=== PATIENT | male | born 1985 | race Caucasian/White ===

== ENCOUNTER 2016-09-20 09:52 | Emergency (ER) | payer OTHER ==
[2016-09-20 09:54] VITALS: BP 136/86; PULSE 71; TEMP 98.3; BMI 25.0
[2016-09-20] MEDS ORDERED: IBUPROFEN 600 MG TABLET (FP) PO ONE ×2 (10:17→10:22)
--- NOTE | 2016-09-20 10:23 | PDOC ---
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 Patient states pain is worsened with lifting arm sideways and backwards. Patient denies being is injury to the affected area and denies sensory changes distal of the injury. Timing/Duration: 1-3 hours Severity: mild Associated Symptoms: reports: denies symptoms Past History - Past Medical History Allergies/Adverse Reactions: Allergies Allergy/AdvReac Type Severity Reaction Status Date / Time No Known Allergies Allergy Verified 09/20/16 09:57 Home Medications: Ambulatory Orders Cyclobenzaprine HCl [Flexeril -] 10 mg PO TID #21 tablet 10/24/14 Naproxen [Naprosyn -] 500 mg PO BID #20 tablet 10/24/14 Other medical history: NONE - Psycho/Social/Smoking Cessation Hx Anxiety: No Suicidal Ideation: No Smoking History: Never smoked Hx Alcohol Use: No Drug/Substance Use Hx: No Substance Use Type: None Patient Lives Alone: Yes Lives with/in: lives alone Review of Systems - Review of Systems Able to Perform ROS?: Yes Constitutional: No: Symptoms Reported HEENTM: No: Symptoms Reported Respiratory: No: Symptoms reported Cardiac (ROS): No: Symptoms Reported ABD/GI: No: Symptoms Reported Musculoskeletal: Yes: Joint Pain (left shoulder), Muscle Pain (left shoulder) Integumentary: No: Symptoms Reported Neurological: No: Numbness, Tingling, Weakness *Physical Exam - Vital Signs Last Vital Signs Temp Pulse Resp BP Pulse Ox 98.3 F 71 20 136/86 100 09/20/16 09:52 09/20/16 09:52 09/20/16 09:52 09/20/16 09:52 09/20/16 09:52 - Physical Exam General Appearance: Yes: Nourished, Appropriately Dressed. No: Apparent Distress HEENT: positive: EOMI Neck: positive: Supple. negative: Decreased range of motion Respiratory/Chest: positive: Lungs Clear, Normal Breath Sounds. negative: Respiratory Distress, Accessory Muscle Use Cardiovascular: positive: Regular Rhythm, Regular Rate. negative: Murmur Extremity: positive: Normal Capillary Refill, Normal Inspection, Tender (over the lateral aspect of AC joint and over the anterior aspect of rotator cuff tendon ) Integumentary: positive: Normal Color, Warm, Moist. negative: Swelling, Ecchymosis Neurologic: positive: Motor Strength 5/5 (left shoulder shrug and hand grasp) Medical Decision Making - Medical Decision Making 09/20/16 10:26 Injury to left shoulder with likely rotator cuff strain versus tear. Patient ordered for Motrin here and will be given recommendations to rest for 48 hours, contact orthopedist and [facility]. Patient also recommended to take Motrin every 8 hours and avoid movements that triggered discomfort *DC/Admit/Observation/Transfer Diagnosis at time of Disposition: Rotator cuff (capsule) sprain Qualifiers: Encounter type: initial encounter Laterality: left Qualified Code(s): S43.422A - Sprain of left rotator cuff capsule, initial encounter Rotator cuff injury Qualifiers: Encounter type: initial encounter Laterality: left Qualified Code(s): S46.002A - Unspecified injury of muscle(s) and tendon(s) of the rotator cuff of left shoulder, initial encounter - Discharge Dispostion Disposition: HOME Condition at time of disposition: Good - Referrals Referrals: Ilya Rodriguez MD [Staff Physician] - - Patient Instructions Printed Discharge Instructions: DI for Rotator Cuff Injury Additional Instructions: I recommend taking 600 mg of Motrin every 8 hours. Please apply ice to the area as much as you can tolerate over the next 72 hours. Contact referred orthopedist and only just discuss further workup including imaging. Avoid movements that triggered discomfort. - Post Discharge Activity Work/School Note: Back to Work
== END 2016-09-20 10:40 | disposition home or self-care (01) ==
LOC: JERFT 09:52
DX: S43.422A Sprain of left rotator cuff capsule, initial encounter (principal); X50.0XXA Overexertion from strenuous movement or load, initial encounter; Y93.89 Activity, other specified; Y92.89 Other specified places as the place of occurrence of the external cause; Y99.0 Civilian activity done for income or pay
CPT/HCPCS: 99281-25

== ENCOUNTER 2021-03-22 13:36 | Emergency (ER) | payer OTHER ==
[2021-03-22 13:47] VITALS: BP 125/85; PULSE 82; TEMP 98.5; BMI 27.0
[2021-03-22] MEDS ORDERED: IBUPROFEN 600 MG TABLET (FP) PO ONE (14:29)
[2021-03-22] MEDS ORDERED: IBUPROFEN 400 MG TABLET (FP) PO ONE (14:40)
[2021-03-22] MEDS ORDERED: TETANUS AND DIPHTHERIA TOXOID 0.5 ML DISP.SYRIN IM ONE (15:26)
[2021-03-22] MEDS ORDERED: DIPHTH,PERTUSS(ACELL),TET 0.5 ML DISP.SYRIN IM ONE (15:39)
== END 2021-03-22 15:57 | disposition home or self-care (01) ==
LOC: JERFT 13:36
PROC: 3E0234Z Introduction of Serum, Toxoid and Vaccine into Muscle, Percutaneous Approach (ICD-10-PCS; principal; 2021-03-22)
DX: S99.921A Unspecified injury of right foot, initial encounter (principal)
CPT/HCPCS: 73630-TC-RT-FY; 99284-25

== ENCOUNTER 2025-04-07 11:56 | Emergency (ER) | payer OTHER ==
[2025-04-07 12:04] VITALS: BP 117/70; PULSE 88; RESP 20; TEMP 97.7; BMI 27.0
[2025-04-07] MEDS ORDERED: BACITRACIN ZINC 15 GM TUBE TOPICAL OINTMENT ONE (13:48)
[2025-04-07] MEDS: BACITRACIN ZINC 15 GM TUBE TOPICAL OINTMENT TP ONE (13:51)
== END 2025-04-07 14:06 | disposition home or self-care (01) ==
LOC: JER 11:56
DX: T24.231A Burn of second degree of right lower leg, initial encounter (principal); Y99.0 Civilian activity done for income or pay
CPT/HCPCS: 99283-25